=== PATIENT | female | born 1965 | race Caucasian/White ===

== ENCOUNTER 2016-06-30 05:34 | Inpatient (IN) | payer OTHER ==
[2016-06-29 09:21] LABS: HEMOGLOBIN 14.7 g/dL (12.0-15.5); HGB HCT DIFFERENCE 0.1; MEAN CORPUSCULAR HEMOGLOBIN 29.8 pg (27.0-33.4); MEAN CORPUSCULAR HGB CONC 33.3 g/dL (32.0-36.0); MEAN CORPUSCULAR VOLUME 90 fl (80-97); RED BLOOD COUNT 4.92 10^6/uL (3.72-5.28); RED CELL DISTRIBUTION WIDTH 12.8 % (11.5-14.0); WHITE BLOOD COUNT 9.6 10^3/uL (4.0-10.5)
[2016-06-29 09:29] LABS: AMORPHOUS SEDIMENT,URINE TRACE /HPF; APPEARANCE,URINE CLOUDY; BILIRUBIN,URINE NEGATIVE (NEGATIVE); GLUCOSE, URINE >=500 mg/dL (NEGATIVE); KETONES,URINE NEGATIVE (NEGATIVE); LEUKOCYTE ESTERASE,URINE TRACE (NEGATIVE); NITRITE,URINE NEGATIVE (NEGATIVE); PROTEIN,URINE NEGATIVE (NEGATIVE); URINE SPECIFIC GRAVITY 1.013; UROBILINOGEN,URINE NEGATIVE mg/dL (<2.0)
[2016-06-29 09:46] LABS: ALANINE AMINOTRANSFERASE 18 U/L (9-52); ALBUMIN 3.9 g/dL (3.5-5.0); ALKALINE PHOSPHATASE 66 U/L (38-126); ANION GAP 10 (5-19); ASPARTATE AMINO TRANSFERASE 17 U/L (14-36); BILIRUBIN,TOTAL 0.6 mg/dL (0.2-1.3); BLOOD UREA NITROGEN 12 mg/dL (7-20); CALCIUM 10.6 mg/dL (8.4-10.2); CARBON DIOXIDE 28 mmol/L (22-30); CHLORIDE 101 mmol/L (98-107); CREATININE RESULT 0.61 mg/dL (0.52-1.25); GLUCOSE 197 mg/dL (75-110); POTASSIUM 4.5 mmol/L (3.6-5.0); SODIUM 139.2 mmol/L (137-145); TOTAL PROTEIN 6.3 g/dL (6.3-8.2)
--- NOTE | 2016-06-29 13:41 | EKG REPORT ---
SEVERITY:- NORMAL ECG - SINUS RHYTHM : Confirmed by: Micaela Kim MD 29-Jun-2016 13:41:07
[~2016-06-30 05:34] MED LIST: CEFAZOLIN SODIUM 1 GM in DEXTROSE 5%-WATER 50 ML IV PRN; LACTATED RINGERS 1000 ML IV PRN; LIDOCAINE 0.5% INJ-PF (5 MG/ML) 50 ML SDV SUBCUT PRN
[2016-06-30] MEDS ORDERED: LIDOCAINE 1%/EPINEPHRINE INJ 20 ML VIAL ONE (06:32)
[2016-06-30] MEDS ORDERED: FENTANYL CITRATE INJ/PF 250 MCG/5 ML AMPULE ONE (07:02)
[2016-06-30] MEDS ORDERED: EPHEDRINE SULFATE INJ 50 MG/1 ML AMPULE ONE (07:02)
[2016-06-30] MEDS ORDERED: MIDAZOLAM 2 MG/2 ML INJ ONE (07:02)
[2016-06-30] MEDS ORDERED: ACETAMINOPHEN 100 ML IV ONE (07:03)
[2016-06-30] MEDS ORDERED: DEXMEDETOMIDINE INJ 80 MCG/20 ML VIAL IV ONE (07:03)
[2016-06-30] MEDS ORDERED: PROPOFOL INJ 200 MG/20 ML VIAL IV ONE (07:03)
[2016-06-30] MEDS ORDERED: DIPHENHYDRAMINE HCL 50 MG/ML VIAL IV PRN (08:20)
[2016-06-30] MEDS ORDERED: MORPHINE SULFATE 10 MG/ML INJ IV PRN ×2 (08:20→10:49)
[2016-06-30] MEDS ORDERED: PROMETHAZINE HCL INJ 25 MG/1 ML VIAL IV PRN ×2 (08:20)
[2016-06-30] MEDS ORDERED: FENTANYL CITRATE INJ/PF 100 MCG/2 ML AMPUL IV PRN ×3 (08:20)
[2016-06-30] MEDS ORDERED: OXYCODONE-ACETAMINOPHEN 5-325 MG TABLET PO PRN ×2 (08:20)
[2016-06-30] MEDS ORDERED: MEPERIDINE HCL/PF INJ 25 MG/1 ML DISP.SYRIN IV PRN (08:20)
[2016-06-30] MEDS ORDERED: FENTANYL CITRATE INJ/PF 100 MCG/2 ML AMPUL ONE (09:49)
[2016-06-30] MEDS ORDERED: MORPHINE SULFATE 10 MG/ML INJ ONE (10:24)
[2016-06-30] MEDS ORDERED: LORAZEPAM 1 MG TABLET PO PRN (10:46)
--- NOTE | 2016-06-30 10:53 | OPERATIVE REPORT E ---
Operative Report NAME: PATRICIA SANCHEZ : 1965 AGE: 50Y DATE OF SURGERY: 06/30/2016 ROOM: OR PREOPERATIVE DIAGNOSES: 1. Abnormal uterine bleeding. 2. Pelvic pain. 3. Ovarian cyst. POSTOPERATIVE DIAGNOSES: 1. Abnormal uterine bleeding. 2. Pelvic pain. 3. Ovarian cyst. OPERATION: Total abdominal hysterectomy with bilateral salpingo-oophorectomy. SURGEON: CHRISTIANE VILCHIS M.D. MS SQL SERVER DEVELOPER: Janell Stover, sampler first student. ANESTHESIA: Dr. Vidal with general. FINDINGS: A 3 cm right ovarian cyst with a hypertrophied right ovary consistent with perimenopause. A 10 cm left ovarian cyst with several septations and a cyst contained within the cyst as well. A 14-week sized uterus with a small anterior fibroid, otherwise, normal anatomy. COMPLICATIONS: None. ESTIMATED BLOOD LOSS: 200 mL. SPECIMENS REMOVED: Uterus, cervix, bilateral fallopian tubes, and ovaries. PROCEDURE IN DETAIL: The patient was taken to the operating room, prepared and draped in normal sterile fashion in the supine position. A transverse skin incision was made with the 10 blade and carried through to the underlying layer of fascia with the same 10 blade. The fascia was excised in the midline and extended laterally with Jain. The fascia was then dissected from the rectus muscle sharply with Jain and the rectus muscle was divided. The peritoneum was tented up between 2 hemostats and entered sharply with Metzenbaum. The peritoneum was divided. The bowel was identified and packed away with 3 laparotomy sponges. The anatomy was noted. The Josh retractor was placed without difficulty and with good visualization of all anatomy. We began with dissection of the enlarged left ovary as this was impeding visualization the most and the IP ligament was identified. The *------* transected using the LigaSure device. The remainder of the ovary was transected from the utero-ovarian ligament using the LigaSure without difficulty. Because the right ovary was presenting itself easily, we repeated this process there to aid our visualization and continued dissection of the uterus. The uterus was then clamped at the fundus with a single tooth tenaculum and the uterus was tented up. The LigaSure device was then used to transect the uterine arteries bilaterally staying close to the cervix and uterus. This was done until the cervix could be identified through the mucosa. The vaginal cuff angles were then clamped to the Felecia clamp and tied off with 2-0 chromic bilaterally. The cervix was then amputated using Juancho. The vaginal cuff was then closed with 2-0 Vicryl with interrupted sutures with good hemostasis noted. The peritoneal cavity was copiously irrigated with sterile water and noted to be hemostatic. The bladder was inspected and found to be hemostatic and without injury. The ureters were reinspected once more as they had been throughout the case and found to be peristalsing normally bilaterally as well with no signs of hydroureter. We irrigated once more and again found good hemostasis. The sutures were cut. The instruments were removed. The Josh retractor was removed. The bowel packing was removed and the bowel was replaced into the peritoneal cavity. The rectus muscle and the peritoneum were reapproximated with 3 sutures of 2-0 Chromic using mattress stitches. The fascia was closed with 0 Vicryl. The subcutaneous layer was closed with plain catgut and the skin was closed with 4-0 Vicryl using a subcu stitch. The patient tolerated the procedure well. Sponge, lap, and needle counts were correct x2. Patient was taken to recovery in stable condition. DICTATING PHYSICIAN: CHRISTIANE VILCHIS M.D. [id number] PHY#: [id number] ID: [id number] JOB#: [id number] ACCT: [id number] cc:CHRISTIANE VILCHIS M.D. >
[2016-06-30] MEDS ORDERED: LIDOCAINE 2% INJ-PF (20 MG/ML) 10 ML AMPUL ONE (11:52)
[2016-06-30] MEDS ORDERED: DEXAMETHASONE SOD PHOSPHATE INJ 4 MG/1 ML VIAL ONE (11:52)
[2016-06-30] MEDS ORDERED: METOCLOPRAMIDE HCL INJ/PF 10 MG/2 ML SDV ONE (11:52)
[2016-06-30] MEDS ORDERED: NEOSTIGMINE METHYLSULFATE 10 MG/10 ML VIAL ONE (11:52)
[2016-06-30] MEDS ORDERED: VECURONIUM BROMIDE INJ 10 MG VIAL IV ONE (11:52)
[2016-06-30] MEDS ORDERED: ONDANSETRON HCL INJ/PF 4 MG/2 ML SDV ONE (11:52)
[2016-06-30] MEDS ORDERED: SUCCINYLCHOLINE CHLORIDE INJ 200 MG/10 ML VIAL ONE (11:52)
[2016-06-30] MEDS ORDERED: GLYCOPYRROLATE INJ 0.4 MG/2 ML VIAL ONE (11:52)
[2016-06-30] MEDS: OXYCODONE-ACETAMINOPHEN 5-325 MG TABLET PO PRN (12:41)
[2016-06-30] MEDS: LACTATED RINGERS 1000 ML IV PRN ×2 (15:11→21:36)
[2016-06-30] MEDS: KETOROLAC TROMETHAMINE INJ/PF 30 MG/1 ML SDV IV SCH ×2 (15:11→21:37)
[2016-06-30] MEDS ORDERED: ACETAMINOPHEN 100 ML IV SCH (16:00)
[2016-06-30] MEDS: METFORMIN HCL 500 MG TABLET PO SCH (16:14)
[2016-07-01] MEDS: LACTATED RINGERS 1000 ML IV PRN (05:23)
[2016-07-01] MEDS: KETOROLAC TROMETHAMINE INJ/PF 30 MG/1 ML SDV IV SCH (05:24)
[2016-07-01 05:43] LABS: HEMATOCRIT 35.1 % (36.0-47.0); HGB HCT DIFFERENCE 0.6; MEAN CORPUSCULAR HEMOGLOBIN 30.1 pg (27.0-33.4); MEAN CORPUSCULAR HGB CONC 33.9 g/dL (32.0-36.0); MEAN CORPUSCULAR VOLUME 89 fl (80-97); RED BLOOD COUNT 3.96 10^6/uL (3.72-5.28); RED CELL DISTRIBUTION WIDTH 13.1 % (11.5-14.0); WHITE BLOOD COUNT 16.2 10^3/uL (4.0-10.5)
[2016-07-01 05:44] LABS: HEMOGLOBIN 11.9 g/dL (12.0-15.5)
[2016-07-01] MEDS: METFORMIN HCL 500 MG TABLET PO SCH ×2 (09:17→16:46)
[2016-07-01] MEDS ORDERED: IBUPROFEN 800 MG TABLET PO PRN (14:00)
[2016-07-01] MEDS: OXYCODONE-ACETAMINOPHEN 5-325 MG TABLET PO PRN (14:57)
[2016-07-01] MEDS ORDERED: DOCUSATE SODIUM 100 MG CAPSULE PO ONE (15:30)
[2016-07-01] MEDS ORDERED: METRONIDAZOLE 500 MG TABLET PO ONE (15:30)
--- NOTE | 2016-07-01 17:01 | PDOC DISCHARGE SUMMARY ---
General - Admit/Disc Date/PCP Admission Date/Primary Care Provider: 06/30/16 05:34 CHRISTIANE VILCHIS MD Discharge Date: 07/01/16 - Discharge Diagnosis (1) Abnormal uterine bleeding Is this a current diagnosis for this admission?: Yes (2) Anemia Is this a current diagnosis for this admission?: Yes (3) Ovarian cyst Is this a current diagnosis for this admission?: Yes - Additional Information Home Medications: Metformin HCl [Glucophage 500 mg Tablet] 1,000 mg PO BIDACBS #60 tablet History of Present Illness History of Present Illness: PATRICIA SANCHEZ is a 50 year old female Hospital Course Hospital Course: normal post op course. now passing flatus, tolerating regular diet. pain controlled w/ po pain meds Physical Exam - Physical Exam Vital Signs: Temp Pulse Resp BP Pulse Ox 98.0 F 77 16 118/69 98 07/01/16 11:33 07/01/16 11:33 07/01/16 11:33 07/01/16 11:33 07/01/16 11:33 Intake & Output 06/30/16 07/01/16 07/02/16 06:59 06:59 06:59 Intake Total 0 5616 320 Output Total 3175 Balance 0 2441 320 Weight 73.48 kg Result Laboratory Results: 07/01/16 05:23 06/30/16 06:00 07/01/16 05:23 WBC 16.2 H RBC 3.96 Hgb 11.9 L D Hct 35.1 L MCV 89 MCH 30.1 MCHC 33.9 RDW 13.1 Plt Count 171 Impressions: Chest X-Ray 06/29/16 08:59 IMPRESSION: NO SIGNIFICANT RADIOGRAPHIC FINDING IN THE CHEST. Plan Discharge Plan: discharge home, keep follow up appt scheduled Time Spent: Less than 30 Minutes
[2016-07-01 17:16] VITALS: BP 116/78
[2016-07-02] MEDS ORDERED: DOCUSATE SODIUM 100 MG CAPSULE PO SCH (06:00)
== END 2016-07-01 17:30 | disposition home or self-care (01) | DRG 743 ==
LOC: INOR 05:34 → 2N 11:17
PROVIDERS: ADMIT Obstetrics & Gynecology; ATTEND Obstetrics & Gynecology
PROC: 0UTC0ZZ Resection of Cervix, Open Approach (ICD-10-PCS; 2016-06-30)
PROC: 0UT20ZZ Resection of Bilateral Ovaries, Open Approach (ICD-10-PCS; 2016-06-30)
PROC: 0UT70ZZ Resection of Bilateral Fallopian Tubes, Open Approach (ICD-10-PCS; 2016-06-30)
PROC: 0UT90ZZ Resection of Uterus, Open Approach (ICD-10-PCS; principal; 2016-06-30 07:30)
DX: N93.8 Other specified abnormal uterine and vaginal bleeding (principal); D64.9 Anemia, unspecified; E11.44 Type 2 diabetes mellitus with diabetic amyotrophy; R10.2 Pelvic and perineal pain; N83.202 Unspecified ovarian cyst, left side; N83.201 Unspecified ovarian cyst, right side; Z79.84 Long term (current) use of oral hypoglycemic drugs
CPT/HCPCS: 36415; 71020; 80053; 81001; 82947; 82962; 840; 84703; 85027; 86850; 86900; 86901; 88307; 93005; 93010; J0131; J0330; J0690; J1100; J1885; J2250; J2270; J2405; J2704; J2765; J3010; J3490; J7120

== ENCOUNTER 2018-09-24 16:58 | Emergency (ER) | payer SELFPAY ==
[2018-09-24 17:28] VITALS: BP 132/87
--- NOTE | 2018-09-24 17:54 | RADIOLOGY REPORT (SQ) ---
EXAM DESCRIPTION: ANKLE LEFT COMPLETE COMPLETED DATE/TIME: 09/24/2018 5:18 pm REASON FOR STUDY: injury COMPARISON: None. EXAM PARAMETERS: NUMBER OF VIEWS: Three views. TECHNIQUE: AP, lateral and oblique radiographic images acquired of the left ankle. LIMITATIONS: None. FINDINGS: MINERALIZATION: Normal. BONES: No dislocation. 2 mm avulsion from the inferior aspect of the lateral malleolus. No other f racture identified. JOINTS: Small effusion. SOFT TISSUES: Lateral soft tissue swelling. No radiopaque foreign body. OTHER: No other significant finding. IMPRESSION: 2 mm avulsion from the inferior aspect of the lateral malleolus. TECHNICAL DOCUMENTATION: JOB ID: [id number] [place]-72 2010 [employer]- All Rights Reserved Reading location - IP/workstation name: My eStore App
--- NOTE | 2018-09-24 18:23 | ER Document Report ---
ED Extremity Problem, Lower - General Chief Complaint: Ankle Injury Stated Complaint: ANKLE INJURY Time Seen by Provider: 09/24/18 18:12 Primary Care Provider: [facility] [Provider Group] - Follow up as needed CHRISTIANE VILCHIS MD [ACTIVE STAFF] - Follow up as needed Mode of Arrival: Ambulatory Information source: Patient Notes: 53-year-old female presented to ED for complaint of left ankle pain times 3 days. She states she fell down and sprained her ankle and the swelling has increased and it is not getting better. She states she is been elevating and icing the ankle at home but she is worked last 2 nights and the swelling has become much worse. She states she is taking Tylenol at home. She is alert oriented respirations regular and unlabored speaking in full sentences walking with a limp. She states she has limited range of motion due to the pain in the ambulation is with pain. TRAVEL OUTSIDE OF THE [place] IN LAST 30 DAYS: No - HPI Patient complains to provider of: Injury, Pain, Swelling Location: Ankle Occurred: Other - 2 days ago Where: Home Onset/Duration: Persistent Quality of pain: Achy, Sharp, Throbbing Severity: Moderate Pain Level: 4 Context: Fell Recent injury: Yes Associated symptoms: Painful ambulation Exacerbated by: Hanging down, Movement, Walking Relieved by: Elevation, Ice, Rest - Related Data Allergies/Adverse Reactions: No Known Allergies Allergy (Verified 09/24/18 18:26) Past Medical History - General Information source: Patient - Social History Smoking Status: Current Every Day Smoker Cigarette use (# per day): Yes Smoking Education Provided: Yes - 4 minutes Frequency of alcohol use: None Drug Abuse: None Family History: CAD Patient has suicidal ideation: No Patient has homicidal ideation: No - Past Medical History Cardiac Medical History: Reports: None, 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 Pulmonary Medical History: Reports: Hx Bronchitis, Hx COPD, Hx Pneumonia Neurological Medical History: Reports: Hx Seizures Endocrine Medical History: Reports: Hx Diabetes Mellitus Type 2 Renal/ Medical History: Reports: None Malignancy Medical History: Reports: Other - Uterine cancer GI Medical History: Reports: None Musculoskeletal Medical History: Reports Hx Musculoskeletal Trauma Skin Medical History: Reports None Psychiatric Medical History: Reports: None Traumatic Medical History: Reports: None Infectious Medical History: Reports: None Past Surgical History: Reports: Hx Adenoidectomy, Hx Cholecystectomy, Hx Gynecologic Surgery - Bilateral fallopian tube removal secondary to cancer, Hx Hysterectomy, Hx Myringotomy, Hx Tonsillectomy, Hx Tubal Ligation - Immunizations Immunizations up to date: Yes Hx Diphtheria, Pertussis, Tetanus Vaccination: Yes Review of Systems - Review of Systems Constitutional: No symptoms reported EENT: No symptoms reported Cardiovascular: No symptoms reported Respiratory: No symptoms reported Gastrointestinal: No symptoms reported Genitourinary: No symptoms reported Female Genitourinary: No symptoms reported Musculoskeletal: Joint pain - Left ankle, Joint swelling - Left ankle Skin: No symptoms reported Hematologic/Lymphatic: No symptoms reported Neurological/Psychological: No symptoms reported -: Yes All other systems reviewed and negative Physical Exam - Vital signs Vitals: Temp Pulse Resp BP Pulse Ox 98.3 F 91 16 132/87 H 94 09/24/18 17:25 09/24/18 17:25 09/24/18 17:25 09/24/18 17:25 09/24/18 17:25 Interpretation: Normal - General General appearance: Appears well, Alert - HEENT Head: Normocephalic, Atraumatic Eyes: Normal Pupils: PERRL - Respiratory Respiratory status: No respiratory distress Chest status: Nontender Breath sounds: Normal Chest palpation: Normal - Cardiovascular Rhythm: Regular Heart sounds: Normal auscultation Murmur: No - Abdominal Inspection: Normal Distension: No distension Bowel sounds: Normal Tenderness: Nontender Organomegaly: No organomegaly - Back Back: Normal, Nontender - Extremities General upper extremity: Normal inspection, Nontender, Normal color, Normal ROM, Normal temperature General lower extremity: Normal temperature, Normal weight bearing. No: Rocío's sign Ankle: Tender, Ecchymosis, Edema, Limited ROM. No: Abrasion, Deformity - The pain, Instability, Laceration, Unable to bear weight Foot: Tender - Full left lateral ankle foot, Edema, No evidence of FB. No: Metatarsal compress. pain, Unable to bear weight - Neurological Neuro grossly intact: Yes Cognition: Normal Orientation: AAOx4 [place] Coma Scale Eye Opening: Spontaneous Alcides Coma Scale Verbal: Oriented Alcides Coma Scale Motor: Obeys Commands Alcides Coma Scale Total: 15 Speech: Normal Motor strength normal: LUE, RUE, LLE, RLE Sensory: Normal - Psychological Associated symptoms: Normal affect, Normal mood - Skin Skin Temperature: Warm Skin Moisture: Dry Skin Color: Normal Course - Vital Signs Vital signs: Temp Pulse Resp BP Pulse Ox 98.3 F 91 16 132/87 H 94 09/24/18 17:25 09/24/18 17:25 09/24/18 17:25 09/24/18 17:25 09/24/18 17:25 - Diagnostic Test Radiology reviewed: Image reviewed, Reports reviewed Procedures - Immobilization Left Ankle Time completed: 18:30 Pre-Proc Neuro Vasc Exam: Normal Immobilizer type: Posterior ankle Performed by: PCT Post-Proc Neuro Vasc Exam: Normal Alignment checked and good: Yes Discharge - Discharge Clinical Impression: Avulsion fracture of lateral malleolus of left fibula Qualifiers: Encounter type: initial encounter Fracture type: closed Qualified Code(s): S82.62XA - Displaced fracture of lateral malleolus of left fibula, initial en counter for closed fracture Condition: Stable Disposition: HOME, SELF-CARE Additional Instructions: Avulsion Fracture You have an avulsion fracture, sometimes also called a flake or chip fracture. This type of fracture is caused by a sudden stress on a ligament or tendon. As the ligament pulls on the bone, the bone gives way, and a chip of bone cracks off. Small avulsion fractures are not usually serious. More often, the ligament injury which caused the bone chip is of greater concern. The treatment is usually the same as for a ligament or tendon injury -- that is, rest, ice, and elevation -- with careful resumption of use once the pain and swelling have resolved. For some avulsion fractures, a cast or special splint is necessary. Large avulsion fractures may even require an operation. Often the treatment plan will change depending on how well your injury progresses. Healing usually takes between three and six weeks. Future X-rays will most likely still show this bone chip, as it does not "fuse." Call the doctor or return at once if swelling and pain become severe, or if numbness dev elops. SPLINT PRECAUTIONS: A splint has been placed. This will protect the area while healing begins. Your problem does NOT normally require a cast. It MUST, however, be held still ! Keep the splint on ALL THE TIME until instructed to remove it by the doctor. As you begin to use the area, be careful. You shouldn't do anything which causes discomfort -- you may disturb the injury even with the splint in place. After the initial period of rest and elevation, if splint does not prevent pain when you move, come back. You may require placement of a different splint, or a cast. If there is unexpected severe pain, or numbness, discoloration, or swelling beyond the splint, you should return at once. If you feel that the splint has broken or become loose, come back. USE OF CRUTCHES: The doctor has recommended that you not bear weight at this time. You will need to use crutches. Adjust the crutches so the tops come to about two inches under the armpit while you are standing upright. Use your hands -- not your armpits -- to support your weight. To get into a chair, support yourself with one crutch on the injured side. Hold the chair with the other hand, then lower yourself while putting all your weight on the good leg. Going up stairs is `good leg up, step up, then bring up crutches and bad leg.' Down stairs is `bad leg and crutches down, then bring good leg down.' If you develop numbness or swelling in an arm or hand, you are using the crutches incorrectly. Return if you are having any problems with the crutches. ICE & ELEVATION: Apply ice packs frequently against the painful area. Many different schedules are recommended, such as "20 minutes on, 20 minutes off" or "one hour ice, two hours rest." If you need to work, you may need to go longer between ice treatments. You should plan to have the area ice packed AT LEAST one-fourth of the time. The ice should be applied over the wrap, tape, or splint, or over a layer of cloth -- not directly against the skin. Some ice bags have a built-in cloth and can be put directly on the skin. Your injured part should be elevated as much as possible over the next 48 hours. Try to keep the injury above the level of the heart. Avoid use of the injured area. Elevation and rest will decrease the swelling. USE OF [id number] IBUPROFEN: Ibuprofen (Advil, Nuprin, Medipren, Motrin IB) is a medication for fever and pain control. In addition, it has anti- inflammatory effects which may be beneficial, especially in the treatment of injuries. It's best to take ibuprofen with food. Persons with ulcer disease or allergy to aspirin should notify their physician of this before taking ibuprofen. Ibuprofen can be given every four to six hours, for a total of four doses daily. Age Pain or fever dose Antiinflammatory dose 6-8 yr 200 mg (1 tab) 200 mg (1 tab) 9-11 yr 200 mg (1 tab) 200-400 mg (1-2 tab) 11-14 yr 200-400 mg (1-2 tab) 400 mg (2 tab) 15-adult 400 mg (2 tab) 600 mg (3 tab) FOLLOW-UP CARE: If you have been referred to a physician for follow-up care, call the physicians office for an appointment as you were instructed or within the next two days. If you experience worsening or a significant change in your symptoms, notify the physician immediately or return to the Emergency Department at any time for re-evaluation. Forms: Elevated Blood Pressure, Smoking Cessation Education, Return to Work Referrals: CHRISTIANE VILCHIS MD [ACTIVE STAFF] - Follow up as needed [facility] [Provider Group] - Follow up as needed
== END 2018-09-24 18:35 | disposition home or self-care (01) ==
LOC: ER 16:58
DX: S82.62XA Displaced fracture of lateral malleolus of left fibula, initial encounter for closed fracture (principal); M25.572 Pain in left ankle and joints of left foot; W19.XXXA Unspecified fall, initial encounter; Y92.009 Unspecified place in unspecified non-institutional (private) residence as the place of occurrence of the external cause; F17.210 Nicotine dependence, cigarettes, uncomplicated; Z71.6 Tobacco abuse counseling; J44.9 Chronic obstructive pulmonary disease, unspecified; E11.9 Type 2 diabetes mellitus without complications
CPT/HCPCS: 99283

== ENCOUNTER 2020-03-24 08:03 | Emergency (ER) | payer SELFPAY ==
[2020-03-24 08:07] VITALS: BP 123/79
[2020-03-24] MEDS ORDERED: ONDANSETRON 4 MG TAB.RAPDIS PO ONE (10:01)
[2020-03-24] MEDS ORDERED: AMOXICILLIN TRIHYDRATE 500 MG CAPSULE PO ONE (10:01)
[2020-03-24] MEDS ORDERED: HYDROCODONE/ACETAMINOPHEN 5-325 MG TABLET PO ONE (10:01)
--- NOTE | 2020-03-24 10:18 | ER Document Report ---
ED GI/ - General Chief Complaint: Abdominal Pain Stated Complaint: EAR PAIN, UPSET STOMACH Time Seen by Provider: 03/24/20 09:41 Notes: CHIEF COMPLAINT: Earache for 2 to 3 days, upset stomach with nausea vomiting for 2 to 3 days HPI: 54-year-old female presenting to the emergency department complaining of bilateral ear discomfort over the last 2 to 3 days more prominent in the left ear. No discharge. No facial congestion. Patient also believes that she has a sour stomach from eating chicken 3 days ago. States she began having nausea with 1-2 episodes of vomiting after eating the chicken. Patient went to work today with the symptoms and was COVID tested and sent to the emergency department. Patient states she does get COVID tested fairly frequently at work. Has no cough chest pain shortness of breath. Denies abdominal pain. Denies diarrhea ROS: See HPI - all other systems were reviewed and are otherwise negative Constitutional: no fever Eyes: no drainage, no blurred vision ENT: no runny nose, no sore throat, bilateral ear pain Cardiovascular: no chest pain Resp: no SOB, no cough GI: + vomiting, no diarrhea, no abdominal pain : no dysuria Integumentary: no rash Allergy: no hives Musculoskeletal: no extremity pain or swelling Neurological: no numbness/tingling, no weakness MEDICATIONS: I agree with the patient medications as charted by the RN. ALLERGIES: I agree with the allergies as charted by the RN. PAST MEDICAL HISTORY/PAST SURGICAL HISTORY: Reviewed and agree as charted by RN. SOCIAL HISTORY: Reviewed and agree as charted by RN. FAMILY HISTORY: No significant familial comorbid conditions directly related to patient complaint EXAM: Reviewed vital signs as charted by RN. CONSTITUTIONAL: Alert and oriented and responds appropriately to questions. Well-appearing; well-nourished HEAD: Normocephalic; atraumatic EYES: PERRL; Conjunctivae clear, sclerae non-icteric ENT: normal nose; no rhinorrhea; moist mucous membranes; pharynx without lesions noted, no uvula edema or deviation, no tonsillar hypertrophy, phonation normal. Patient noted to have serous fluid behind the right tympanic membrane. Patient noted to have hyperemia and slight bulging of the left tympanic membrane. NECK: Supple without meningismus; non-tender; no cervical lymphadenopathy, no masses CARD: RRR; no murmurs, no clicks, no rubs, no gallops; symmetric distal pulses RESP: Normal chest excursion without splinting or tachypnea; breath sounds clear and equal bilaterally; no wheezes, no rhonchi, no rales, pulse oximetry 98% on room air not hypoxic ABD/GI: Normal bowel sounds; non-distended; soft, non-tender, no rebound, no guarding; no palpable organomegaly or masses. BACK: The back appears normal and is non-tender to palpation, there is no CVA tenderness EXT: Normal ROM in all joints; non-tender to palpation; no cyanosis, no effusions, no edema SKIN: Normal color for age and race; warm; dry; good turgor; no acute lesions noted NEURO: Moves all extremities equally; Motor and sensory function intact PSYCH: The patient's mood and manner are appropriate. Grooming and personal hygiene are appropriate. MDM: 54-year-old female presenting with a litany of complaints. Has bilateral ear discomfort has a left otitis media which will need treatment with amoxicillin and short course of pain medication. Has nausea after eating chicken 3 days ago. Has no abdominal pain. Initial screening labs placed by the nursing process protocol. We will add a troponin and EKG given the patient's age, she has no reproducible discomfort and has been fairly constant over the last 3 days, low suspicion for ACS if troponin negative and EKG without significant abnormalities. The patient's lab work does not show acute findings will treat for otitis and discharge. She has COVID test pending from work TRAVEL OUTSIDE OF THE [place] 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 Denies: Hx Graves' Disease, Hx Hyperthyroidism, Hx Hypothyroidism Renal/ Medical History: Denies: Hx End Stage Renal Disease, Hx Kidney Stones, Hx Ovarian Cysts, Hx Peritoneal Dialysis, Hx Pelvic Inflammatory Disease Malignancy Medical History: Denies: Hx Breast Cancer, Hx Cervical Cancer, Hx Lung Cancer, Hx Ovarian Cancer Musculoskeletal Medical History: Denies Hx Arthritis, Denies Hx Fibromyalgia, Denies Hx Muscular Dystrophy, Reports Hx Musculoskeletal Trauma, Denies Hx Systemic Lupus Erythematosus Psychiatric Medical History: Traumatic Medical History: Denies: Hx Fractures Past Surgical History: Reports: Hx Adenoidectomy, Hx Cholecystectomy, 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 Denies: Hx Appendectomy, Hx Bowel Surgery, Hx Section, Hx Coronary Artery Bypass Graft, Hx Gastric Bypass Surgery, Hx Herniorrhaphy, Hx Mastectomy, Hx Pacemaker - Immunizations Immunizations up to date: Yes Hx Diphtheria, Pertussis, Tetanus Vaccination: Yes Physical Exam - Vital signs Vitals: Temp 98.2 F 03/24/20 08:03 Course - Re-evaluation Re-evalutation: 03/24/20 11:17 EKG normal sinus rhythm with a ventricular rate of 80. MT 120. QT 384. QTc 443. Normal EKG, no other ectopy noted. interpreted by ER attending 03/24/20 11:34 Lab work does not show any acute abnormalities. Troponin negative. Low suspicion for ACS. Will treat for otitis media. Person under investigation for COVID-19 per her work COVID test. Will self quarantine at home - Vital Signs Vital signs: Temp Pulse Resp BP Pulse Ox 98.7 F 100 16 123/79 96 03/24/20 08:06 03/24/20 08:06 03/24/20 08:06 03/24/20 08:06 03/24/20 08:06 - Laboratory Result Diagrams: 03/24/20 10:20 03/24/20 10:20 Laboratory results interpreted by me: 03/24/20 03/24/20 10:20 10:20 Glucose 188 H Calcium 10.4 H Urine Glucose (UA) >=500 H Discharge - Discharge Clinical Impression: Person under investigation for COVID-19, Nausea Otitis media Qualifiers: Otitis media type: unspecified Laterality: left Qualified Code(s): H66.92 - Otitis media, unspecified, left ear Condition: Stable Disposition: HOME, SELF-CARE Additional Instructions: Take the medications as prescribed for the ear infection. Take Zofran for nausea or vomiting. You are considered a person under investigation for COVID- 19 at this time pending your COVID test which was done at your workplace. Self quarantine at home pending your results Prescriptions: Amoxicillin 1 tab PO TID #30 tab Hydrocodone/Acetaminophen [[place] 5-325 mg Tablet] 1 tab PO Q4 PRN #10 tablet PRN Reason: Ondansetron [Zofran Odt 4 mg Tablet] 1 - 2 tab PO Q4H PRN #15 tab.rapdis PRN Reason: For Nausea/Vomiting
[2020-03-24 10:32] LABS: APPEARANCE,URINE SLIGHTLY-CLOUDY; BILIRUBIN,URINE NEGATIVE (NEGATIVE); COLOR,URINE YELLOW; GLUCOSE, URINE >=500 mg/dL (NEGATIVE); KETONES,URINE NEGATIVE (NEGATIVE); LEUKOCYTE ESTERASE,URINE NEGATIVE (NEGATIVE); NITRITE,URINE NEGATIVE (NEGATIVE); PROTEIN,URINE NEGATIVE (NEGATIVE); URINE SPECIFIC GRAVITY 1.023; UROBILINOGEN,URINE NEGATIVE mg/dL (<2.0)
[2020-03-24 10:34] LABS: ABSOLUTE BASOPHILS # (AUTO) 0.1 10^3/uL (0.0-0.2); ABSOLUTE EOSINOPHILS # (AUTO) 0.1 10^3/uL (0.0-0.6); ABSOLUTE LYMPHOCYTES (AUTO) 4.4 10^3/uL (0.5-4.7); ABSOLUTE MONOCYTES (AUTO) 0.6 10^3/uL (0.1-1.4); ABSOLUTE NEUT (AUTO) 4.6 10^3/uL (1.7-8.2); BASOPHILS % (AUTO) 0.9 % (0-2); EOSINOPHILS % (AUTO) 1.3 % (0-6); HEMATOCRIT 43.7 % (36.0-47.0); HEMOGLOBIN 15.2 g/dL (12.0-15.5); MEAN CORPUSCULAR HGB CONC 34.9 g/dL (32.0-36.0); MEAN CORPUSCULAR VOLUME 89 fl (80-97); MONOCYTES % (AUTO) 5.8 % (3-13); PLATELET COUNT 178 10^3/uL (150-450); RED BLOOD COUNT 4.91 10^6/uL (3.72-5.28); RED CELL DISTRIBUTION WIDTH 13.3 % (11.5-14.0); TOTAL CELLS COUNTED % (AUTO) 100 %; WHITE BLOOD COUNT 9.7 10^3/uL (4.0-10.5)
[2020-03-24 10:58] LABS: ALBUMIN 4.2 g/dL (3.5-5.0); ALKALINE PHOSPHATASE 99 U/L (38-126); ASPARTATE AMINO TRANSFERASE 31 U/L (14-36); BILIRUBIN,DIRECT 0.3 mg/dL (0.0-0.4); BILIRUBIN,TOTAL 0.6 mg/dL (0.2-1.3); BLOOD UREA NITROGEN 9 mg/dL (7-20); CALCIUM 10.4 mg/dL (8.4-10.2); GLUCOSE 188 mg/dL (75-110); POTASSIUM 4.9 mmol/L (3.6-5.0); TOTAL PROTEIN 6.9 g/dL (6.3-8.2)
[2020-03-24 11:04] LABS: ANION GAP 6 (5-19); CARBON DIOXIDE 29 mmol/L (22-30); CHLORIDE 104 mmol/L (98-107)
--- NOTE | 2020-03-24 17:37 | EKG REPORT ---
SEVERITY:- NORMAL ECG - SINUS RHYTHM : Confirmed by: Micaela Kim MD 24-Mar-2020 17:36:54
== END 2020-03-24 12:00 | disposition home or self-care (01) ==
LOC: ER 08:03
DX: H66.92 Otitis media, unspecified, left ear (principal); R11.2 Nausea with vomiting, unspecified; F17.200 Nicotine dependence, unspecified, uncomplicated; J44.9 Chronic obstructive pulmonary disease, unspecified; E11.9 Type 2 diabetes mellitus without complications; Z20.828 Contact with and (suspected) exposure to other viral communicable diseases
CPT/HCPCS: 93005; 99284; 36415; 83690; 85025; 80053; 81001; 84484; 93010; S0119